=== PATIENT | male | born 1970 | race Caucasian/White ===

== ENCOUNTER 2021-09-13 20:10 | Emergency (ER) | payer MEDICAID ==
[~2021-09-13] VITALS: Ht 182.9 cm; Wt 81.6 kg
--- NOTE | 2021-09-13 20:20 | NUR ---
patient in 4a waiting to be seen by ER physician.
[2021-09-13] MEDS ORDERED: HYDROCODONE/APAP 10-325 MG TABLET PO ONE (20:30)
[2021-09-13] MEDS ORDERED: ONDANSETRON ODT 4 MG TAB.RAPDIS SL ONE (20:30)
[2021-09-13] MEDS ORDERED: PENICILLIN G BENZATHINE 2.4 MMU/4 ML DISP.SYRIN IM ONE ×2 (20:30→20:35)
[2021-09-13] MEDS ORDERED: ONDANSETRON HCL 4 MG TABLET ONE (20:34)
[2021-09-13] MEDS ORDERED: HYDROCODONE/APAP 5-325MG TABLET ONE (20:35)
[2021-09-13] MEDS ORDERED: TRIA5PAS4 DT (20:36)
[2021-09-13] MEDS ORDERED: HYDR-4209 PO (20:36)
[2021-09-13] MEDS ORDERED: HYDROCODONE/APAP 10-325 MG TABLET ONE (20:39)
== END 2021-09-13 21:14 | disposition home or self-care (01) ==
LOC: ER 20:18
DX: K12.0 Recurrent oral aphthae (principal); K02.9 Dental caries, unspecified; K05.10 Chronic gingivitis, plaque induced; F17.210 Nicotine dependence, cigarettes, uncomplicated
CPT/HCPCS: 96372; 99283; 99406; J0561; A4663; Q0162